=== PATIENT | female | born 1975 | race Caucasian/White ===

== ENCOUNTER 2018-06-25 00:32 | Outpatient (CLI) | payer OTHER, SELFPAY ==
--- NOTE | 2018-06-25 07:31 | MERGE_ITS ---
*[facility]* *[facility]* [address] [place] [address] Date of study: 06/25/2018 Transthoracic Echocardiography M-mode, complete 2D, complete spectral Doppler, and color Doppler *STUDY CONCLUSIONS* Summary: 1. Left ventricle: The cavity size was normal. Wall thickness was normal. Systolic function was normal. The estimated ejection fraction was 60-65%. Wall motion was normal; there were no regional wall motion abnormalities. Diastolic parameters were normal. 2. Right ventricle: The cavity size was normal. Wall thickness was normal. Systolic function was normal. 3. Inferior vena cava: The vessel was normal in size. The respirophasic diameter changes were in the normal range (greater than or equal to 50%), consistent with normal central venous pressure. *PATIENT PRESENTATION* Height: 165.1cm ((65in) ) S/D Pressure: 109 / 74 Weight: 88kg ((193.6lb) ) BSA: 1.95m^2 Test start time: 07:45 AM. Test stop time: 08:35 AM. ORDERING Lolly Houser REFERRING Lolly Houser PERFORMING Unknown PERFORMING 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 Pertinent images and digital data are archived for permanent storage and are available for subsequent review. No prior study was available for comparison. Study status: Routine. Transthoracic echocardiography. M-mode, complete 2D, complete spectral Doppler, and color Doppler. A Transthoracic Echocardiogram was performed. Scanning was performed from the parasternal, apical, subcostal, and suprasternal notch acoustic windows. Images were obtained using an [id number] cardiac ultrasound machine. Study completion: The patient tolerated the procedure well. There were no complications. History: PMH: Edema. *CARDIAC ANATOMY* Left ventricle: The cavity size was normal. Wall thickness was normal. Systolic function was normal. The estimated ejection fraction was 60-65%. Wall motion was normal; there were no regional wall motion abnormalities. Diastolic parameters were normal. Aortic valve: Trileaflet; normal thickness leaflets. Mobility was not restricted. Doppler: Transvalvular velocity was within the normal range. There was no stenosis. There was no significant regurgitation. VTI ratio of LVOT to aortic valve: 0.77. Valve area (VTI): 2.3cm^2. Indexed valve area (VTI): 1.2cm^2/m^2. Peak velocity ratio of LVOT to aortic valve: 0.74. Valve area (Vmax): 2.2cm^2. Indexed valve area (Vmax): 1.1cm^2/m^2. Mean velocity ratio of LVOT to aortic valve: 0.76. Valve area (Vmean): 2.3cm^2. Indexed valve area (Vmean): 1.2cm^2/m^2. Mean gradient (S): 4.6mm Hg. Peak gradient (S): 8.3mm Hg. Aorta: Aortic root: The aortic root was normal in size. Ascending aorta: The ascending aorta was normal in size. Mitral valve: Structurally normal valve. Mobility was not restricted. Doppler: Transvalvular velocity was within the normal range. There was no evidence for stenosis. There was trivial regurgitation. Valve area by pressure half-time: 4.3cm^2. Indexed valve area by pressure half-time: 2.2cm^2/m^2. Peak gradient (D): 3.1mm Hg. Left atrium: The atrium was normal in size. Right ventricle: The cavity size was normal. Wall thickness was normal. Systolic function was normal. Pulmonic valve: Structurally normal valve. Doppler: Transvalvular velocity was within the normal range. There was no evidence for stenosis. There was trivial regurgitation. Peak gradient (S): 3.7mm Hg. Tricuspid valve: Structurally normal valve. Doppler: Transvalvular velocity was within the normal range. There was no evidence for stenosis. There was mild regurgitation. Pulmonary artery: Pulmonary systolic pressure was within the normal range, in the range of 25mm Hg to 30mm Hg. Right atrium: The atrium was normal in size. Pericardium: There was no pericardial effusion. Systemic veins: Inferior vena cava: Well visualized. The vessel was normal in size. The respirophasic diameter changes were in the normal range (greater than or equal to 50%), consistent with normal central venous pressure. Baseline ECG: Sinus bradycardia. Measurements Left ventricle Value Reference LV ID, ED, PLAX 4.8 cm 3.5 - 6.0 LV ID, ES, PLAX 3.2 cm 2.1 - 4.0 LV PW thickness, ED, PLAX 0.9 cm LV end-diastolic volume, 1-p A2C 78 ml LV ejection fraction, 1-p A2C 61 % LV end-diastolic volume, 1-p A4C 63 ml LV ejection fraction, 1-p A4C 62 % LV e', lateral 0.125 m/sec LV E/e', lateral 7 LV e', medial 0.102 m/sec LV E/e', medial 9 LV e', average 0.114 m/sec LV E/e', average 8 Ventricular septum Value Reference IVS thickness, ED, PLAX 1.0 cm LVOT Value Reference LVOT ID, A-P 2.0 cm LVOT area 3 cm^2 LVOT peak velocity, S 1.06 m/sec LVOT mean velocity, S 0.79 m/sec LVOT VTI, S 24.8 cm LVOT peak gradient, S 4.5 mm Hg LVOT mean gradient, S 2.7 mm Hg Stroke volume (SV), LVOT DP 74 ml Stroke index (SV/bsa), LVOT DP 38 ml/m^2 Aortic valve Value Reference Aortic valve peak velocity, S 1.4 m/sec Aortic valve mean velocity, S 1.04 m/sec Aortic valve VTI, S 32.0 cm Aortic mean gradient, S 4.6 mm Hg Aortic peak gradient, S 8.3 mm Hg VTI ratio, LVOT/AV 0.77 Aortic valve area, VTI 2.3 cm^2 Velocity ratio, peak, LVOT/AV 0.74 Aortic valve area, peak velocity 2.2 cm^2 Velocity ratio, mean, LVOT/AV 0.76 Aortic valve area, mean velocity 2.3 cm^2 Aortic valve area/bsa, mean velocity 1.2 cm^2/m^2 Aorta Value Reference Aortic root ID, ED 2.6 cm Ascending aorta ID, A-P, S 3.2 cm RVOT Value Reference RVOT VTI, S 19.5 cm Left atrium Value Reference LA ID, A-P, ES 3.4 cm LA ID/bsa, A-P 1.7 cm/m^2 <=2.2 LA area, ES, A4C 14.2 cm^2 8.8 - 23.4 LA area, ES, A2C 15 cm^2 LA volume/bsa, ES, 1-p A4C 17 ml/m^2 LA volume, ES, 2-p 37 ml LA volume/bsa, ES, 2-p 19 ml/m^2 LA/aortic root ratio 1.3 Mitral valve Value Reference Mitral E-wave peak velocity 0.88 m/sec Mitral A-wave peak velocity 0.53 m/sec Mitral deceleration time 177 ms 150 - 230 Mitral pressure half-time 51 ms Mitral peak gradient, D 3.1 mm Hg Mitral E/A ratio, peak 1.67 Mitral valve area, PHT, DP 4.3 cm^2 Pulmonary veins Value Reference Pulmonary vein peak velocity, S 0.52 m/sec Pulmonary vein peak velocity, D 0.56 m/sec Pulmonary vein velocity ratio, peak, 0.94 S/D Pulmonary vein A-wave reversal peak 0.25 m/sec velocity Pulmonary vein A-wave reversal 174 ms duration Tricuspid valve Value Reference Tricuspid regurg peak velocity 2.5 m/sec Tricuspid peak RV-RA gradient 25.4 mm Hg Right atrium Value Reference RA area, ES, A4C 12.2 cm^2 8.3 - 19.5 Pulmonic valve Value Reference Pulmonic peak gradient, S 3.7 mm Hg Pulmonic regurg velocity, ED 0.96 m/sec Legend: (L) and (H) chacha values outside specified reference range. I have personally reviewed the images and have reviewed and edited the reported findings. Electronically signed by Escobar Paul 06/25/2018 11:44
== END 2018-06-25 00:52 ==
PROVIDERS: PCP Family Medicine; Visit Provider Family Medicine
DX: R60.0 Localized edema (principal)
CPT/HCPCS: 93306

== ENCOUNTER 2018-07-02 02:30 | Outpatient (CLI) | payer OTHER, SELFPAY ==
--- NOTE | 2018-08-05 17:13 | CER_ITS ---
DATE OF READING: August 05, [address]: July 02 - July 31, 2018 Baseline rhythm sinus. Average heart rate 68 bpm. No atrial fibrillation identified. 0 critical, 0 serious events. 43 stable events. Shortness of breath is described once during sinus tachycardia 124 bpm. Rapid/fast heart rate descri bed once during sinus rhythm with PVC 99 bpm. Lightheadedness/dizziness described twice during sinus rhythm 80-92 bpm. Chest pain or pressure described the remainder of times all during sinus rhythm 59-91 bpm.
--- NOTE | 2018-08-15 13:56 | W.ZIOMONITOR ---
ZIO Patch Weight Calculator Note: Findings: Monitored for 30 days. Sinus rhythm throughout. Average HR 79/', range 56 - 110/'. No tachy- or bradyarrhytmias 42 patient events, none correlated w/ arrhythmias. Interpretation: Normal study. S/s don't correlate w/ arrhythmias
--- NOTE | 2018-08-15 14:02 | ZIOP_ITS ---
ZIO Patch Reception Centre Manager Note: Findings: Monitored for 30 days. Sinus rhythm throughout. Average HR 79/', range 56 - 110/'. No tachy- or bradyarrhytmias 42 patient events, none correlated w/ arrhythmias. Interpretation: Normal study. S/s don't correlate w/ arrhythmias
--- NOTE | 2018-08-16 09:39 | W.CARDEVENT ---
Cardiac Event Recorder Cardiac Event Note: Preventive monitoring device Patient monitored for 30 days. Indication: palpitations Patient was in sinus rhythm throughout the monitoring period. No significant arrhythmias detected. 42 patient triggered events with symptoms such as chest pain, shortness of breath or flutter all correspond to sinus rhythm. No significant tachyarrhythmias or bradyarrhythmias detected.
== END 2018-07-02 02:50 ==
PROVIDERS: PCP Family Medicine; Visit Provider Family Medicine
DX: R00.2 Palpitations (principal); I49.3 Ventricular premature depolarization
CPT/HCPCS: 93270

== ENCOUNTER 2018-07-10 00:51 | Outpatient (CLI) | payer OTHER, SELFPAY ==
--- NOTE | 2018-07-10 09:00 | DI.MAMMO_ITS ---
SYMPTOMS/DIAGNOSIS: SCREENING MAMMOGRAMS: Mammograms were interpreted according to the usual protocol including computer analysis with CAD system, tomosynthesis and C view imaging. No priors. No masses or microcalcifications are seen. There is nothing to suggest malignancy. IMPRESSION: Negative mammogram. Routine screening is recommended. Category 1 , breast density C. MQSA ASSESSMENT OF FINDINGS: Negative. Category 1. Patient will receive a letter notifying them of these results. Bi-RADS category C. The breasts are heterogeneously dense, which may obscure small masses.
== END 2018-07-10 01:11 ==
PROVIDERS: PCP Family Medicine; Visit Provider Family Medicine
DX: Z12.31 Encounter for screening mammogram for malignant neoplasm of breast (principal)
CPT/HCPCS: 77063; 77067

== ENCOUNTER 2018-07-10 08:09 | Emergency (ER) | payer OTHER, SELFPAY ==
[2018-07-10 08:14] VITALS: BP 146/95; PULSE 77; RESP 16; TEMP 37.4; O2SAT 98
--- NOTE | 2018-07-10 08:34 | W.ED.GENAD ---
Discharge Plan Disposition Patient Disposition: HOME Condition: Stable Discharge Details Chief Complaint: Cellulitis Clinical Impression: Bacterial skin infection, Folliculitis Primary Care Provider: Lolly Houser V ED Provider: Edilma Donahue Home Meds and New Rx's Prescriptions: New mupirocin 2 % ointment 1 applic TP TID Qty: 15 RF: 0 Discharge Instructions Instructions: Folliculitis (ED) Additional Instructions: Alternate Tylenol and Motrin as needed and directed for pain. Apply warm compresses to the affected area several times daily for 20 minutes at a time. Use the antibiotic ointment as directed. Follow-up with the primary care doctor in 1 week for reevaluation. Return immediately to the emergency department if you develop any worsening or new concerning symptoms such as fever, red streaking, or any other concerns. Discharge Data Discharge Physician: Edilma Donahue Medical Decision Making 43-year-old female who presents with painful lump on the back of the right side of her head since yesterday morning. Patient states it is sore to the touch and feels like a bump. Patient states is worse with bending over. She has taken Tylenol, Motrin applied ice, and heat without relief. She states this morning it started radiating down into her right neck and up to her right ear. She denies any changes in size. She denies known fever. She states she has been eating and drinking normally. Right posterior head notes 2-3 pinpoint very yellowish erythematous papules on the right occipital region and scalp at the base of the hair follicle. There is no abscess, drainage or bleeding noted. Differential diagnosis includes bug bite, folliculitis. No enlarged lymph node. Doubt viral process such as herpes or shingles, as there is no other rash but with significant pain this could be possible. At this point in time I do not think oral antibiotics are indicated and patient is agreeable. Discussed with patient that as the area has not changed in size since yesterday, this is reassuring but it may change at any time. Patient instructed to alternate Tylenol and Motrin, alternate ice and heat, and will send home with mupirocin to apply to the affected area 2-3 times daily. It was discussed with patient that symptoms could change or worsen over the next few days and that she should return immediately with any concerns such as fever, red streaking, or any other concerns. She is instructed to follow-up with her primary care doctor in 1 week for reevaluation. HPI General Mode of arrival: ambulatory. Date/Time Provider Initiated Documentation: 07/10/18 08:14. Limitations to Documentation: no limitations. Information obtained by: patient. HPI Narrative: 43-year-old female who presents with painful lump on the back of the right side of her head since yesterday morning. Patient states it is sore to the touch and feels like a bump. Patient states is worse with bending over. She has taken Tylenol, Motrin applied ice, and heat without relief. She states this morning it started radiating down into her right neck and up to her right ear. She denies any changes in size. She denies known fever. She states she has been eating and drinking normally. Past medical history: None Surgical history: L5-S1 fusion, , tubal ligation Social history: Quit tobacco, rare alcohol, denies drugs Medications: Multivitamin Allergies: None PCP: Dr. Houser LMP: 3 weeks ago Related Data Home Medications Medication Instructions Recorded Confirmed mupirocin 1 applic TP TID #15 gm 07/10/18 Previous Rx's Medication Instructions Recorded mupirocin 1 applic TP TID #15 gm 07/10/18 Allergies Allergy/AdvReac Type Severity Reaction Status Date / Time No Known Allergies Allergy Unverified 07/10/18 08:18 General Stated Complaint: Cellulitis ELENA: 4 Review of Systems Review of Systems All systems reviewed & are unremarkable except as noted in HPI and below Constitutional Denies chills, Denies fatigue, Denies fever(s), Denies poor appetite and Denies weakness Eyes Denies blurry vision and Denies eye pain ENT Denies ear discharge, Reports otalgia and Reports neck pain Cardiovascular Denies chest pain and Denies dyspnea Respiratory Denies dyspnea Musculoskeletal Reports neck pain Neurologic Denies weakness Endocrine Denies fatigue [facility] Social History Smoking/Tobacco Use Status: Former Tobacco Use Exam Const General: cooperative and healthy appearing Orientation: alert and awake [facility] Head: other (3 pinpoint faint yellowish/pinkish papules noted in right posterior occipital region and scalp. No significant induration, fluctuance, edema or erythema. No lymphadenopathy. No red streaking) Ears: hearing grossly normal bilaterally, external ears normal and TM's normal bilaterally General nose exam: external nose normal Face and sinus: normal facial exam Mouth: oral mucosae normal Teeth and gingiva: dentition normal Throat: posterior oropharynx normal Eyes General: appearance normal, both eyes and all related structures Eyelids: eyelids normal Pupils: PERRL EOM: EOM intact bilaterally Neck Neck: normal visual inspection Lymphatic: no lymphadenopathy noted Chest Chest: normal inspection of the chest Resp Effort & Inspection: normal respiratory effort and able to speak in complete sentences Cardio Rate: regular rate Neuro General: alert and awake Cognition: normal cognition Speech: speech normal Gait: normal gait Extrem General: full ROM Psych Appearance: grossly normal Mental Status: mental status grossly normal Speech and Movement: speech and movement normal Affect: normal affect Thought Process: normal Course Vital Signs Temperature 99.3 F 07/10/18 08:14 Pulse 77 07/10/18 08:14 Respiratory Rate 16 07/10/18 08:14 Blood Pressure 146/95 H 07/10/18 08:14 Pulse Oximetry 98 07/10/18 08:14 Temperature 99.3 F 07/10/18 08:14 Temperature Source Temporal Artery Scan 07/10/18 08:14 Pulse 77 07/10/18 08:14 Respiratory Rate 16 07/10/18 08:14 Respiratory Effort 07/10/18 08:16 Blood Pressure 146/95 H 07/10/18 08:14 Blood Pressure Position Sitting 07/10/18 08:14 Pulse Oximetry 98 07/10/18 08:14 Oxygen Delivery Method Room Air 07/10/18 08:14 Oxygen Flow Rate 0 07/10/18 08:14 Pain Level 6 07/10/18 08:14
--- NOTE | 2018-07-10 08:38 | ED.GENADUL_ITS ---
Discharge Plan Disposition Patient Disposition: HOME Condition: Stable Discharge Details Chief Complaint: Cellulitis Clinical Impression: Bacterial skin infection, Folliculitis Primary Care Provider: Lolly Houser V ED Provider: Edilma Donahue Home Meds and New Rx's Prescriptions: New mupirocin 2 % ointment 1 applic TP TID Qty: 15 RF: 0 Discharge Instructions Instructions: Folliculitis (ED) Additional Instructions: Alternate Tylenol and Motrin as needed and directed for pain. Apply warm compresses to the affected area several times daily for 20 minutes at a time. Use the antibiotic ointment as directed. Follow-up with the primary care doctor in 1 week for reevaluation. Return immediately to the emergency department if you develop any worsening or new concerning symptoms such as fever, red streaking, or any other concerns. Discharge Data Discharge Physician: Edilma Donahue Medical Decision Making 43-year-old female who presents with painful lump on the back of the right side of her head since yesterday morning. Patient states it is sore to the touch and feels like a bump. Patient states is worse with bending over. She has taken Tylenol, Motrin applied ice, and heat without relief. She states this morning it started radiating down into her right neck and up to her right ear. She denies any changes in size. She denies known fever. She states she has been eating and drinking normally. Right posterior head notes 2-3 pinpoint very yellowish erythematous papules on the right occipital region and scalp at the base of the hair follicle. There is no abscess, drainage or bleeding noted. Differential diagnosis includes bug bite, folliculitis. No enlarged lymph node. Doubt viral process such as herpes or shingles, as there is no other rash but with significant pain this could be possible. At this point in time I do not think oral antibiotics are indicated and patient is agreeable. Discussed with patient that as the area has not changed in size since yesterday, this is reassuring but it may change at any time. Patient instructed to alternate Tylenol and Motrin, alternate ice and heat, and will send home with mupirocin to apply to the affected area 2-3 times daily. It was discussed with patient that symptoms could change or worsen over the next few days and that she should return immediately with any concerns such as fever, red streaking, or any other concerns. She is instructed to follow-up with her primary care doctor in 1 week for reevaluation. HPI General Mode of arrival: ambulatory . Date/Time Provider Initiated Documentation: 07/10/18 08:14 . Limitations to Documentation: no limitations . Information obtained by: patient . HPI Narrative: 43-year-old female who presents with painful lump on the back of the right side of her head since yesterday morning. Patient states it is sore to the touch and feels like a bump. Patient states is worse with bending over. She has taken Tylenol, Motrin applied ice, and heat without relief. She states this morning it started radiating down into her right neck and up to her right ear. She denies any changes in size. She denies known fever. She states she has been eating and drinking normally. Past medical history: None Surgical history: L5-S1 fusion, , tubal ligation Social history: Quit tobacco, rare alcohol, denies drugs Medications: Multivitamin Allergies: None PCP: Dr. Houser LMP: 3 weeks ago Related Data Home Medications Medication Instructions Recorded Confirmed mupirocin 1 applic TP TID #15 gm 07/10/18 Previous Rx's Medication Instructions Recorded mupirocin 1 applic TP TID #15 gm 07/10/18 Allergies Allergy/AdvReac Type Severity Reaction Status Date / Time No Known Allergies Allergy Unverified 07/10/18 08:18 General Stated Complaint: Cellulitis ELENA: 4 Review of Systems Review of Systems All systems reviewed & are unremarkable except as noted in HPI and below Constitutional Denies chills, Denies fatigue, Denies fever(s), Denies poor appetite and Denies weakness Eyes Denies blurry vision and Denies eye pain ENT Denies ear discharge, Reports otalgia and Reports neck pain Cardiovascular Denies chest pain and Denies dyspnea Respiratory Denies dyspnea Musculoskeletal Reports neck pain Neurologic Denies weakness Endocrine Denies fatigue [facility] Social History Smoking/Tobacco Use Status: Former Tobacco Use Exam Const General: cooperative and healthy appearing Orientation: alert and awake [facility] Head: other (3 pinpoint faint yellowish/pinkish papules noted in right posterior occipital region and scalp. No significant induration, fluctuance, edema or erythema. No lymphadenopathy. No red streaking) Ears: hearing grossly normal bilaterally, external ears normal and TM's normal bilaterally General nose exam: external nose normal Face and sinus: normal facial exam Mouth: oral mucosae normal Teeth and gingiva: dentition normal Throat: posterior oropharynx normal Eyes General: appearance normal, both eyes and all related structures Eyelids: eyelids normal Pupils: PERRL EOM: EOM intact bilaterally Neck Neck: normal visual inspection Lymphatic: no lymphadenopathy noted Chest Chest: normal inspection of the chest Resp Effort & Inspection: normal respiratory effort and able to speak in complete sentences Cardio Rate: regular rate Neuro General: alert and awake Cognition: normal cognition Speech: speech normal Gait: normal gait Extrem General: full ROM Psych Appearance: grossly normal Mental Status: mental status grossly normal Speech and Movement: speech and movement normal Affect: normal affect Thought Process: normal Course Vital Signs Temperature 99.3 F 07/10/18 08:14 Pulse 77 07/10/18 08:14 Respiratory Rate 16 07/10/18 08:14 Blood Pressure 146/95 H 07/10/18 08:14 Pulse Oximetry 98 07/10/18 08:14 Temperature 99.3 F 07/10/18 08:14 Temperature Source Temporal Artery Scan 07/10/18 08:14 Pulse 77 07/10/18 08:14 Respiratory Rate 16 07/10/18 08:14 Respiratory Effort 07/10/18 08:16 Blood Pressure 146/95 H 07/10/18 08:14 Blood Pressure Position Sitting 07/10/18 08:14 Pulse Oximetry 98 07/10/18 08:14 Oxygen Delivery Method Room Air 07/10/18 08:14 Oxygen Flow Rate 0 07/10/18 08:14 Pain Level 6 07/10/18 08:14
== END 2018-07-10 08:46 | disposition home or self-care (01) ==
PROVIDERS: Emergency Provider Physician Assistant; PCP Family Medicine
DX: L08.9 Local infection of the skin and subcutaneous tissue, unspecified (principal); L73.9 Follicular disorder, unspecified; R22.0 Localized swelling, mass and lump, head
CPT/HCPCS: 99283

== ENCOUNTER 2020-09-03 02:04 | Outpatient (CLI) | payer OTHER, SELFPAY ==
--- NOTE | 2020-09-03 | DI.US_ITS ---
EXAM: US PELVIS TRANSVAGINAL CLINICAL HISTORY: RT LOWER QUADRANT ABD PAIN R10.31 TECHNIQUE: Ultrasound performed using standard protocol. FINDINGS: Pelvic ultrasound was performed transabdominally and transvaginally. No free fluid identified in the pelvis. Possible nonobstructing left lower pole renal calculus ident ified on limited scanning, posterior acoustic shadowing and twinkle artifact noted. Uterus measures about 9.6 x 5.2 x 7.3 cm in diameter. The myometrium is heterogeneous. There is que stion of ??? venetian blind sign??? which can be associated with adenomyosis, additional evaluation with pelv ic MRI may be considered to exclude adenomyosis. No other focal abnormality of the uterus identified . Endometrium was about 8 millimeters in thickness and appears homogeneous. The ovaries are unremarkable in appearance, measuring 35 x 17 x 21 millimeters in diameter on the rig ht and 27 x 19 x 16 millimeters on the left with 19 millimeter presumed dominant right ovarian follic le. IMPRESSION: Heterogeneous uterus with question ???venetian blind sign??? raising the possibility of adenomyosis. Additional evaluation with pelvic MRI may be considered if clinically appropriate. Nonobstructing left renal calculus as described above. DATA REPOSITORY:
== END 2020-09-03 02:24 ==
PROVIDERS: PCP Family Medicine; Visit Provider Nurse Practitioner Women's Health
DX: N20.0 Calculus of kidney (principal); R10.31 Right lower quadrant pain
CPT/HCPCS: 76830; 76856

== ENCOUNTER 2020-10-26 01:40 | Outpatient (CLI) | payer OTHER, SELFPAY ==
--- NOTE | 2020-10-26 08:30 | DI.MAMMO_ITS ---
EXAM: MG MAMMO SCREENING CLINICAL HISTORY: SCREENING,Z12.31 TECHNIQUE: Bilateral full field digital CC and MLO mammographic images were obtained with 3D tomosyn thesis and utilizing computer aided detection (CAD). COMPARISON: Available for comparison. FINDINGS: Masses/Architectural Distortion: None seen. Microcalcifications: No suspicious pleomorphic-type are seen. Skin Thickening/Nipple Retraction: None. IMPRESSION: 1. No significant interval change with no specific features of malignancy noted. 2. Unless there is more urgent need, screening mammography is recommended, as per [employer] guidelines. BI-RADS Category 1 - Negative Breast Density - Category C - Heterogeneously dense Breast density category C or D implies that the patient has dense breast tissue. Dense breast tissue is very common and is not abnormal but dense breast tissue can make it harder to find cancer on a ma mmogram. Also, dense breast tissue may increase their breast cancer risk. This information about the result of the mammogram report was provided to the patient to raise their awareness. Use this report when you speak with the patient about their risks for breast cancer, which includes their family hist ory. At that time, you may recommend for more screening tests (Ultrasound or MRI) as they might be us eful based on their risk. A negative radiographic report should not delay biopsy if a dominant or clinically suspicious mass is present. Up to ten percent of cancers are not identified on mammography. A negative report may reinforce clinical impression. Adenosis and dense breasts may obscure an underlying neoplasm. False positive reports average 6 to 10%. Patient will receive a letter notifying them of these results.
== END 2020-10-26 02:00 ==
PROVIDERS: PCP Family Medicine; Visit Provider Nurse Practitioner Women's Health
DX: Z12.31 Encounter for screening mammogram for malignant neoplasm of breast (principal)
CPT/HCPCS: 77063; 77067

== ENCOUNTER 2021-05-03 02:02 | Outpatient (CLI) | payer OTHER, SELFPAY ==
--- NOTE | 2021-05-03 | DI.MRI_ITS ---
Exam(s) MR CERVICAL SPINE WO EXAM: MR CERVICAL SPINE WO CLINICAL HISTORY: LT NECK PAIN, M54.2 TECHNIQUE: Multiplanar multisequence MRI of the cervical spine was performed without intravenous con trast. COMPARISON: No exams were available for comparison FINDINGS: BONES: Vertebral body heights are maintained. Intervertebral disc spaces are normal. Alignment is nor mal. Bone marrow signal intensity is within normal limits. CERVICAL CORD: Craniovertebral junction is unremarkable. The cervical cord is normal size and signal intensity. SOFT TISSUES: Unremarkable. C2-3: No disc herniation or bulge is identified. No significant central spinal canal or neural forami nal stenosis. C3-4: No disc herniation or bulge is identified. No significant central spinal canal or neural forami nal stenosis C4-5: No disc herniation or bulge is identified. No significant central spinal canal or neural forami nal stenosis C5-6: There does appear to be a mild diffuse disc bulge at this level. No significant central spinal canal or neural foraminal stenosis C6-7: There is a large disc herniation eccentric to the left which extends into the left neural vanessa en causing moderate to severe left neural foraminal stenosis. No significant central spinal canal or right neural foraminal stenosis. C7-T1: No disc herniation or bulge is identified. No significant central spinal canal or neural vanessa inal stenosis IMPRESSION: 1. Large disc herniation at C6-C7 eccentric to the left and extending into the left neural foramen. It causes moderate to severe left neural foraminal stenosis. 2. Mild diffuse disc bulge at C5-C6. No significant central spinal canal or neural foraminal stenosi s results. DATA REPOSITORY:
== END 2021-05-03 02:22 ==
PROVIDERS: PCP Family Medicine; Visit Provider Family Medicine
DX: M50.223 Other cervical disc displacement at C6-C7 level (principal); M50.222 Other cervical disc displacement at C5-C6 level; M48.02 Spinal stenosis, cervical region; R20.2 Paresthesia of skin; M25.512 Pain in left shoulder
CPT/HCPCS: 72141

== ENCOUNTER 2021-12-13 01:07 | Outpatient (CLI) | payer OTHER, SELFPAY ==
--- NOTE | 2021-12-13 08:18 | DI.MAMMO_ITS ---
Exam(s) MAMMO SCREENING EXAM: MAMMO SCREENING CLINICAL HISTORY: SCREENING FOR BREAST CANCER Z12.31. TECHNIQUE: Bilateral full field digital CC and MLO mammographic images were obtained with 3D tomosyn thesis and utilizing computer aided detection (CAD). COMPARISON: Prior mammograms were reviewed, the most recent being October 2020. Prior limited right breast ultrasound of 08/02/2021 was also reviewed. FINDINGS: Fibroglandular tissue pattern is again noted be moderately dense, this somewhat decreasing the sensit ivity of the mammogram for finding hidden underlying lesions. There has been no significant change in the appearance and distribution of the fibroglandular tissue. There are no new obvious spiculated masses nor malignant appearing microcalcification groups. Numerous benign-appearing microcalcifications are again noted. There is no significant architectural distortion nor skin thickening-retraction. IMPRESSION: Moderately dense fibroglandular tissue. No obvious radiographic evidence of malignancy. Given the findings in the right breast on ultrasound of 08/02/2021 (1 o'clock position), if clinicall y indicated ultrasound examination of this finding can be repeated, particularly if the patient feels that it has not decreased in size or disappeared. BI-RADS Category 0 - Assessment Incomplete: Need additional imaging evaluation Breast Density - Category C - Heterogeneously dense Breast density Category C or D implies that the patient has dense breast tissue. Dense breast tissue can make it harder to find cancer on a mammogram. Dense breast tissue is also associated with an incr eased risk of breast cancer. This information about the result of the mammogram report was provided to the patient to raise their awareness. Use this report when you speak with the patient about their risks for breast cancer, which includes their family history. At that time, you may recommend additional screening tests (Ultrasoun d or MRI) as these tests may add significant information. A negative radiographic report should not delay biopsy if a dominant or clinically suspicious mass is present. Up to ten percent of cancers are not identified on mammography. A negative report may reinforce clinical impression. Adenosis and dense breasts may obscure an underlying neoplasm. False positive reports average 6 to 10%. Patient will receive a letter notifying them of these results.
== END 2021-12-13 01:27 ==
PROVIDERS: PCP Family Medicine; Visit Provider Nurse Practitioner Women's Health
DX: Z12.31 Encounter for screening mammogram for malignant neoplasm of breast (principal); R92.8 Other abnormal and inconclusive findings on diagnostic imaging of breast
CPT/HCPCS: 77063; 77067

== ENCOUNTER 2022-06-15 17:20 | Outpatient (REF) | payer OTHER, SELFPAY ==
[2022-06-15 19:33] LABS: HGB 11.4 g/dL (11.2-15.7); MCHC 30.8 % (32.0-36.0); MCV 81 fL (80-95); Platelet Count 439 10^3/uL (130-400); RBC 4.56 10^6/uL (3.93-5.22); RDW-SD 49.4 fL; WBC 10.37 10^3/uL (4.4-10.8)
[2022-06-15 19:50] LABS: ALT 28 U/L (14-59); AST 22 U/L (15-37); Albumin 3.8 g/dL (3.4-5.0); Alkaline Phosphatase 65 U/L (46-116); Anion Gap 9.1 mmol/L (3-11); BUN 11 mg/dL (7-18); Bilirubin, Total 0.4 mg/dL (0.2-1.0); CO2 26.9 mmol/L (21.0-32.0); CREATININE 0.6 mg/dL (0.55-1.02); Calculated LDL 121 mg/dL (<100); Chloride 102 mmol/L (98-107); Cholesterol 194 mg/dL (<200); Estimated GFR 112.73 (mL/min/1.73m2); Glucose 86 mg/dL (74-106); HDL Cholesterol 55 mg/dL (40-60); Sodium 138 mmol/L (136-145); TSH 1.29 uIU/mL (0.36-3.74); Total Protein 8.1 g/dL (6.4-8.2); Triglyceride 91 mg/dL (<150)
[2022-06-15 19:53] LABS: Hemoglobin A1C 5.8 % (<5.7)
== END 2022-06-15 17:21 | disposition home or self-care (01) ==
LOC: NCHCN 17:20
PROVIDERS: PCP Family Medicine; Visit Provider Nurse Practitioner Family
DX: R60.9 Edema, unspecified (principal); Z00.00 Encounter for general adult medical examination without abnormal findings
CPT/HCPCS: 80053; 80061; 85027; 83036; 84443

== ENCOUNTER 2022-07-21 09:01 | Day surgery (SDC) | payer OTHER, SELFPAY ==
--- NOTE | 2022-07-20 21:56 | W.PM.DSUDISC ---
Discharge Plan Disposition Patient Disposition: HOME Condition: Good Discharge Details Attending Provider: Sarah Wallace Primary Care Provider: Lolly Houser V Home Meds and New Rx's Prescriptions: No Action multivitamin [Daily Multi-Vitamin] Tablet 1 tab PO DAILY ibuprofen 200 mg capsule 600 mg PO Q6H PRN famotidine 20 mg tablet 20 mg PO PRN Discharge Instructions Additional Instructions: DSU Colonoscopy/EGD Post-Op Instructions Instructions for Everyone who is given Anesthesia: For your safety, please do the following for the next twenty-four (24) hours: *Do Not operate a motor vehicle (car, truck, motorcycle, etc.) *Do Not drink alcoholic beverages or use any recreational drugs for the first 24 hours or while taking pain medications. The medications in your body may have a reaction that can be dangerous. *Do Not make any important decisions or sign any important papers. Findings: Follow up: 1. No lifting over 20 pounds or strenuous activity for the first 24 hours after your procedure. After 24 hours there are no restrictions on your activity but you may feel fatigued for a few days. 2. After you arrive home you may have a light meal and return to your normal diet as you can tolerate it without feeling sick to your stomach. 3. You may have a bloated, gaseous feeling in your belly (abdomen) after a colonoscopy. Passing gas and belching will help. Walking or lying down on your left side with your knees flexed may relieve the discomfort. Call the office at [phone] (Office) or [phone] (Hospital) right away if you notice any of the following: a.Vomiting of blood or ?coffee ground stools?. b.Rectal bleeding 1Tbsp, blood clots or continuous bleeding. c.Severe belly (abdominal) pain. d.A hard distended belly (abdomen) and an inability to pass gas. 4. Please don?t expect to have a normal BM (bowel movement) for 2-3 days after your procedure. 5. If there are questions regarding the findings of your procedure, please contact your doctor 6. If you are unable to contact your doctor with a problem, contact the hospital at [phone]. 7. Continue all your regular medications unless directed otherwise. I understand the above instructions and have no questions. Signature of Patient or Adult Escort Name of Responsible Adult Escort Signature of Nurse Date/Time Activity:: see above Diet:: see above Discharge Orders Discharge Orders: Discharge Order (Routine); Ordered 07/20/22 Ordered By: Sarah Wallace
--- NOTE | 2022-07-20 21:56 | W.COLOREPORT ---
Colonoscopy Report Pre-op diagnosis general: CRC screening Surgeon: Sarah Wallace Anesthesia Type: General:No Airway Complications: None Disposition: same day Prep: Miralax/Dulcolax Procedure Description: After informed consent was obtained the patient was taken to the procedure room and placed in a left decubitous position. Monitors were applied and a time out was done. The patients name, date of , procedure, allergies to medications and metal in their body was reviewed. The patient was then sedated. Once sedated and comfortable a rectal exam was done. External exam was normal. Internal exam revealed a normal sphincter tone and no palpable masses. The prostate []. The scope was then introduced and retrofelexed. [] internal hemorrhoids were identified. The scope was then advanced to the cecum [] difficulty. The TI and appendiceal orifice were identified. The prep was []. The scope was then slowly retracted over [] minutes back into the rectum. Polyps were removed at []. The scope was removed and the patient was woken up and taken back to Same day surgery in stable condition. The patient tolerated the procedure well and there were no immediate complications. Follow up: The patient should follow up in [] years unless they develop changes in bowel habits or other new gastrointestinal complaints.
--- NOTE | 2022-07-20 21:57 | ENDO_ITS ---
Endoscopy Report PRE-OP DIAGNOSIS: dysphagia SURGEON: Sarah Wallace ANESTHESIA TYPE: General:No Airway PATHOLOGY: other COMPLICATIONS: None DISPOSITION: same day PROCEDURE DESCRIPTION: After informed consent was obtained the patient was take to the procedure room and placed in a supine position. Monitors were applied and a time out was done. The patients name, date of , procedure type, allergies to medications and metal in their body was reviewed. A bite block was placed and the patient was sedated. Once sedated and comfortable the gastroscope was advanced through the oropharynx which was grossly normal into the esophagus. The proximal and mid- esophagus were []. In the distal esophagus there was [] noted. The scope was advanced into the stomach and through the pylorus into the 3rd portion of the duodenum. The duodenum was noted to be []. Biopsies were done []. The scope was retracted back into the stomach and biopsies were done to rule out H. pylori. There were [] ulcers. The scope was retroflexed. The cardia and fundus were noted to be normal. There [] a hiatal hernia noted. The scope was retracted back into the esophagus and biopsies were done of the GE junction to rule out Barrios's. The Z line was regular. The GE junction was at [] cm. The scope was removed and the patient was woken up and taken back to [facility] in stable condition.
--- NOTE | 2022-07-21 06:32 | W.ANESPRE ---
General Info Date of Service Date Performed: 07/21/22 Height: 5 ft 4 in Weight: 87.203 kg Body Mass Index (BMI): 33.0 Surgical Procedure: Operation Date: 07/21/22 09:50 Proposed Procedure Side Surgeon p Colonoscopy/Gastroscopy Sarah Wallace, Meds Allergies and Home Medications Allergies Allergy/AdvReac Type Severity Reaction Status Date / Time omeprazole Allergy Unknown face felt Verified 07/20/22 08:32 like it was on fire Home Medication Medication Instructions Recorded ibuprofen 200 mg capsule 600 mg PO Q6H PRN 03/22/21 famotidine 20 mg tablet 20 mg PO PRN 07/03/22 multivitamin (Daily Multi-Vitamin 1 tab PO DAILY 07/03/22 tablet) Current Visit Medications: Current Medications Generic Name Dose Route Start Last Admin Trade Name Freq PRN Reason Stop Dose Admin Hyoscyamine Sulfate 0.125 mg 07/20/22 21:55 Hyoscyamine 0.125 Mg Sl/Oral/Chew SL DIRECTED PRN Ringer's Solution 1,000 mls @ 80 mls/hr 07/21/22 06:00 IV 07/21/22 23:59 [facility] IV Miscellaneous Supplies 1 each 07/21/22 06:00 Iv Access IV 07/21/22 23:59 DIRECTED ROSAMARIA Ondansetron HCl 4 mg 07/20/22 21:55 Ondansetron 4 Mg/2 Ml Vial IVP Q4H PRN PRN Nausea / Vomiting Sodium Chloride 0 ml 07/21/22 06:00 Normal Saline Flush 10 Ml Syr IV 07/21/22 23:59 PRN PRN Sodium Chloride 0 ml 07/21/22 06:00 Normal Saline 10 Ml Vial IJ 07/21/22 23:59 DIRECTED PRN Sterile Water 0 ml 07/21/22 06:00 Water,Injection,Sterile 10 Ml Vial IJ 07/21/22 23:59 DIRECTED PRN PFSH Active Problems Active Problems: Problem Status Onset Code Anxiety disorder F41.9 GERD (gastroesophageal reflux disease) K21.9 Family history of diabetes mellitus in first degree relative Z83.3 Edema R60.9 Menorrhagia N92.0 Insomnia G47.00 Chest congestion R09.89 Palpitations R00.2 Neck pain on left side M54.2 Swallowing problem R13.10 Medical History Medical History History of TMJ disorder Medical History Comments:: palpatations an chest congestion was worked up to be muscle related, and resolved after she went o a chiropractor. Tobacco Smoking/Tobacco Use Status: Current-Occasional Tobacco Type: cigarettes Alcohol Alcohol Intake: current Alcohol intake frequency: a few times a month Alcohol type: wine Substance Use Substance use: Never Substance use type: does not use Vital Signs and Lab Results Lab Results Blood Type / Crossmatch: No Data to Display Complete Blood Count: No Data to Display Complete Metabolic Panel: No Data to Display Liver Function Panel: No Data to Display Coagulation Panel: No Data to Display Cardiac Panel: No Data to Display Arterial Blood Gas: No Data to Display Venous Blood Gas: No Data to Display Pancreas Panel: No Data to Display Thyroid Panel: No Data to Display Infectious Disease: No Data to Display Blood Cultures: No Data to Display Toxicology Panel: No Data to Display Panel: No Data to Display Imaging and Studies Imaging and Studies Study information below may be from another EMR and interpreted by another provider. Please see original notes in EMR for more complete details. Echocardiogram Summary: 06/2018: LVEF 60-65%, Anesthesia Assessment and Plan Anesthesia History Personal History: No History of Anesthesia Complications Family History: No Family History of Anesthesia Complications Exercise Tolerance Exercise Tolerance: Metabolic Equivalents>4 Cardiac & Pulmonary Exam Cardiac Exam: Normal S1/S2 Heart Sounds Pulmonary Exam: Clear Bilateral Breath Sounds Implantable Cardiac Device Does patient have a Pacemaker or an ICD?: No Airway Exam Known Difficult Airway: No Mallampati Class: 2 Mouth Opening: Normal (> 3cm) Thyromental Distance: Greater than 3 cm Neck Range of Motion: Full ROM Neck Circumference: Normal Teeth Condition: Normal Dentition ASA Classification ASA Score: ASA 2 Emergency Case?: No NPO Status NPO Status: NPO Clears >2 hours, Solids >8 hours Status Status: Negative HCG Anesthesia Plan Resuscitation Status: Full Code Anesthesia Technique: General Anesthesia Airway Planned: Natural Airway Monitors Used: Standard Monitors Preoperative Comments:: 47 yo female with dysphagia/gerd for EGD and screening colo. Sig PMHx: GERD, anxiety, palpitations, TMJ, occ cigarettes, occ EtOH, A1c 5.8%, neck pain/bulging disks causes numb hands bilaterally occ while sleeping.
[2022-07-21 09:29] VITALS: BP 125/89; PULSE 74; RESP 18; TEMP 36.5; O2SAT 79
--- NOTE | 2022-07-21 09:45 | PDOC.DSDIS_ITS ---
Discharge Plan Disposition Patient Disposition: HOME Condition: Good Discharge Details Reason For Visit: EGD and colonoscopy Attending Provider: Cristi Tatum Primary Care Provider: Lolly Houser V Home Meds and New Rx's Prescriptions: Continued multivitamin [Daily Multi-Vitamin] Tablet 1 tab PO DAILY ibuprofen 200 mg capsule 600 mg PO Q6H PRN famotidine 20 mg tablet 20 mg PO PRN Discharge Instructions Instructions: Gastric Polyps (GEN), Colorectal Polyps (GEN) Additional Instructions: 1. If tolerated, consume a soft, low fiber diet for 1-2 days. 2. Do not drive, drink alcohol, operate machinery, make critical decisions, or do activities that require coordination or balance for 24 hours. 3. Because air was put into your colon during the procedure, expelling air from your rectum (passing gas or farting) is normal. 4. You may not have a bowel movement for 1-3 days because of the colonoscopy prep. This is normal. 5. You may experience a sore throat for 24 to 48 hours. You may use throat lozenges or gargle with warm salt water to relieve the discomfort. 6. Because air was put into your stomach during the procedure, you may experience some belching. 7. Go directly to the emergency room if you notice any of the following: Develop chills (warm to touch), or if you have a thermometer and your tempe rature is above 101 Difficulty breathing or difficultly swallowing Persistent vomiting Severe abdominal pain, other than gas cramps Severe chest pain Black, tarry stools Any bleeding ? exceeding one tablespoon 8. Call your physician if the site where your intravenous was started becomes red, swollen, painful, and warm to touch. 9. Your physician has reviewed your pre-procedure medications. Please continue to take those medications as previously ordered. You will be given specific information/education regarding any changes to your medications before leaving. Activity:: Activity as Tolerated Diet:: As Tolerated Discharge Orders Discharge Orders: Discharge Order (Routine); Ordered 07/20/22 Ordered By: Sarah Wallace DS: Diagnosis Discharge Diagnosis (1) Gastric polyps: Status: Acute Asessment and Plan: Continue taking famotidine My office will contact you with results of the biopsies (2) Colorectal polyp detected on colonoscopy: Status: Acute Asessment and Plan: My office will contact you with results of biopsies
--- NOTE | 2022-07-21 09:46 | W.COLOREPORT ---
Colonoscopy Report Date of procedure: 07/21/22 Pre-op diagnosis general: Gastroesophageal reflux disease, screening colonoscopy Post-op diagnosis procedure note: other (Gastric polyps, colorectal polyps) Procedure: EGD and colonoscopy Surgeon: Cristi Tatum Anesthesia Type: General:No Airway Estimated blood loss (mL): 20 Pathology: other (Gastric polyp, colon polyp at 35 cm) Complications: None Disposition: same day Prep: Miralax/Dulcolax Procedure Start Time: 10:19 Procedure End Time: 10:44 Retraction Time: 14 Procedure Description: After the initiation of monitored anesthetic care, and with the assistance of a bite block, I advanced a standard gastroscope through the mouth past the hypopharynx and into the esophagus.? Under the direct vision of the scope, I advanced down the esophagus into the stomach.? Once I entered the stomach, I performed a brief inspection, followed by retroflexion towards the gastric cardia.? This appeared normal.? After that, I gently advanced the scope around the incisura angularis and examined the pylorus.? There were multiple gastric polyps from the gastric body into the gastric antrum. The pylorus appeared normal.? Next, I advanced the scope through the pylorus into the duodenum.? The mucosa was pink and healthy appearing.? There were no abnormalities.? I was able to visualize bile draining into the duodenum through the ampulla Vater. ?Next, I began retracting the endoscope.? Again, I returned to the stomach which was carefully examined once again.? There was one dominant polyp. I performed a polypectomy. I used cold forceps, and there was minimal bleeding. I then gently desufflated some of the stomach, and withdrew the endoscope into the distal esophagus. The GE junction was normal-appearing. The Z-line was normal at 37 cm. ?Finally, I withdrew the scope along the length of the esophagus taking great care to examine the entirety of the mucosa.? I did not appreciate any abnormalities. After the induction of monitored anesthetic care, and with the patient in left lateral decubitus position, I began by performing an external anorectal exam.? Perineum and skin were normal, as was the anal verge.? There was no evidence of external hemorrhoids.? Next, I performed a digital rectal exam.? I did not appreciate any abnormal findings.? Next, I advanced a colonoscope into the rectal vault.? I performed retroflexion.? I did not see signs of pathologic internal hemorrhoids.? Using insufflation, I then advanced the colonoscope beyond the rectal folds and into the sigmoid colon before advancing towards the cecum.? The quality of the prep was adequate.? The scope was noted to be in the cecum by identification of the ileocecal valve and appendiceal orifice.? I then began withdrawing the colonoscope using repeated irrigation as necessary for full evaluation of the colonic mucosa. ?Once the scope was withdrawn to the level of the rectum, great care was taken to examine portions of the rectal folds.?Around 35 cm from the anal verge I identified a 0.75 cm polyp. ?It appeared sessile in character. ?I was able to remove this with a cold forceps. ?I examined the site, and there was minimal bleeding. ?Once this was completed, I continued to withdraw the scope and examine the remainder of the colonic mucosa. Finally, the scope was withdrawn and the patient was brought to the same-day surgery recovery unit as the anesthetic wore off. ?The findings and instructions were shared with the patient prior to discharge.
[2022-07-21 10:03] VITALS: BMI 33.0
--- NOTE | 2022-07-21 10:25 | STOM_PTH ---
PATIENT: Sandy Sy LOC: [facility] U#:[id number] AGE/SX: 47/F ROOM: RE07/21/[address]: Cristi Tatum MD : [id number] BED: DIS: 07/21/2022 SPEC #: [id number] RECD: 07/21/22 12:39 STATUS: KAY REQ #: [id number] EZRA: 07/21/22 10:[address]: Cristi Tatum DEPT: Surgical Specimen RECD BY: Bryanna Randle ENTERED: 07/21/22 12:40 SP TYPE: STOMACH OTHR DR: Lolly Houser V Tissues: 1 - STOMACH BIOPSY 2 - BIOPSY BOWEL Procedures: GROSS AND MICRO LEVEL 4 Comments: [id number]
[2022-07-21 10:51] VITALS: BP 108/73; PULSE 81; RESP 18; TEMP 36; O2SAT 100
--- NOTE | 2022-07-21 10:58 | W.ANESPOSTOP ---
Postoperative Evaluation Date, Time and Location Date Performed: 07/21/22 Time Performed: 10:58 Patient Location: Day Surgery Unit Vital Signs Most Recent Imported Vital Signs: Most Recent Vital Signs Temp Pulse Resp BP Pulse Ox 36.0 C L 81 18 108/73 100 07/21/22 10:51 07/21/22 10:51 07/21/22 10:51 07/21/22 10:51 07/21/22 10:51 Pain Score Most Recent Pain Score: Most Recent Pain Score Pain Level 1 07/21/22 10:51 Assessment Mental Status: Awake (Alert & Oriented to Patient Baseline) Airway and Respiratory Function: Patent airway with normal (patient baseline) respiratory exam Cardiovascular Function: Hemodynamically Stable Hydration Status: Adequately Hydrated Nausea & Vomiting: No Nausea or Vomiting Pain: Pt. Denies Any Pain Peripheral Nerve Block: Patient did not receive a nerve block
[2022-07-21 11:21] VITALS: BP 115/90; PULSE 78; RESP 18; TEMP 36; O2SAT 100
== END 2022-07-21 11:30 | disposition home or self-care (01) ==
PROVIDERS: PCP Family Medicine; Visit Provider Surgery
PROC: (CPT 45380; principal; 2022-07-21 09:45)
DX: K21.9 Gastro-esophageal reflux disease without esophagitis (principal); Z12.11 Encounter for screening for malignant neoplasm of colon; K31.7 Polyp of stomach and duodenum; K63.5 Polyp of colon
CPT/HCPCS: 45380; 43239; 88305

== ENCOUNTER 2022-08-11 00:31 | Outpatient (CLI) | payer OTHER, SELFPAY ==
--- NOTE | 2022-08-11 | DI.RAD_ITS ---
Exam(s) RF BARIUM SWALLOW EXAM: RF BARIUM SWALLOW CLINICAL HISTORY: SWALLOWING PROBLEM, R13.10 TECHNIQUE: 2D and realtime digital imaging was performed. CONTRAST MATERIAL: Oral barium Oral water soluble contrast was administered. COMPARISON: CR CHEST 2 VIEWS PA,LAT from 04/12/2018 FINDINGS: ESOPHAGRAM: Performed both standing and MARTINEZ recumbent. The esophagus is patent with no evidence for erosions, fold thickening, strictures, or masses. A hyp ertense upper esophageal sphincter was noted. No evidence of Zenker's diverticulum. With regards to the motility, there is a normal primary stripping wave. No tertiary contractions were noted. There i s no hiatal hernia or gastroesophageal reflux. The GE junction appears unremarkable. Other: Incidentally noted were multiple lucencies in stomach which may be polyps. IMPRESSION: There is a hypertense upper esophageal sphincter noted. No other findings in the esophagus and GE ju nction. Incidentally noted are multiple hypodensities in the stomach which may be polyps. Direct visualizati on-endoscopy is recommended. RADIATION DOSE DELIVERED: russ Larios=45.2 mGy
--- OUTSIDE RECORDS SUMMARY | 2022-08-11 00:33 | XMS_ITS | Encounter Summary ---
:1975 Author Organization [facility] Address [address] [place] [address] Care Team Providers Name Role Phone Unavailable Primary Care Provider Unavailable Encounter Details Date Type Department Care Team Description 10/29/2006 Results Only [facility] - Todd Boateng MD [address] [id number] [phone] Social History Tobacco Use Types Packs/Day Years Used Date Never Assessed Sex Assigned at Date Recorded Not on file documented as of this encounter Plan of Treatment Not on filedocumented as of this encounter Procedures Procedure Name Priority Date/Time Associated Comments Diagnosis HPV DETECTION, HIGH Routine 10/29/2006 15:07 Resu lts for this RISK TYPES EST procedure are i n the results section. CYTOPATHOLOGY Routine 10/29/2006 0:00 Results for this EST procedure are i n the results section. documented in this encounter Results HUMAN PAPILLOMA VIRUS DNA TEST (10/29/2006 15:07 EST) Specimen Description Cervix, ThinPrep [facility] vial LAB Result Positive for one or more of HPV types 16,18,31,33,35,39,45,51,52,56,58,59, or 68. These GUILLEN Amparo MCCARTNEYEN high/intermediate risk HPV t ypes are associated with dysplasia and some cervical cancers. LAB Report Status Final [facility] [id number] LAB Specimen Performing Organization Address City/State/ZIP Code Phon e Number [facility] [address] [place] [address] SERVICES [facility] [address] [place] [address] CYTOPATHOLOGY (10/29/2006 0:00 EST) Pathology Report: CYTOPATHOLOGY REPORT MINDY SALGUERO Reports generated via electronic interface contain coby ginal data; however they are lacking the format of the original re port. Caution should be taken when reading/interpreting unfo rmatted reports. Name: ? SHIVACAMACHO ? Accession #: ? [id number] : ? 1975 (Age: 31) ??F ?Collect Date: ? 10/09 Location: ? [facility] ? Receive Date : ? 10/30/2006 Provider: ?HILDA BOATENG MD Copy to: ?CRYSTAL PERDOMO MD ? Specimen/Source: ? ThinPrep Pap Test, Cervix/Endocervix, processed on Genero ThinPrep Imaging System, with manual evaluation Last Menstrual Period: ? 10/11/06 Other: ? HPVA - HPV testing requested if ASC-US on the current ThinPrep Pap test. ? SPECIMEN ADEQUACY ? Satisfactory for Evaluation - transformation zone component present GENERAL CATEGORIZATION ? Epithelial Cell Abnormality INTERPRETATION ? Squamous Cell Abnormality - Atypical squamous c ells, undetermined significance (ASC-US). EDUCATIONAL NOTES/RECOMMENDATIONS ? [facility] recommends alberta santo the 2001 Consensus Guidelines for the Management of Women with Cervical Cytological Abnormalities (JAM A,2002;287:2120-9). Management algorithms have b een distributed by [facility] and are available online at www.ASCCP.org. ? Document reviewed and electronically signed by: ? [facility] ? Report Date: ??11/02/2006 15:47 End of Report Specimen Performing Organization Address City/State/ZIP Code Phon e Number [facility] [address] [place] [address] SERVICES [facility] [address] [place] [address] documented in this encounter Visit Diagnoses Not on filedocumented in this encounter
--- OUTSIDE RECORDS SUMMARY | 2022-08-11 00:33 | XMS_ITS | Encounter Summary ---
:1975 Author Organization [facility] Address [address] [place] [address] Care Team Providers Name Role Phone Lolly Houser MD Primary Care Provider Encounter Details Date Type Department Care Team Description 07/21/2022 Lab Requisition [facility] Cristi Tatum Enc ounter for other Pathology & MD general examination Laboratory Medicine - [address] [place] [address] [address] [facility] [address] [place], [place] [address] Social History Tobacco Use Types Packs/Day Years Used Date Never Assessed Sex Assigned at Date Recorded Not on file documented as of this encounter Plan of Treatment Not on filedocumented as of this encounter Procedures Procedure Name Priority Date/Time Associated Diagnosis Comme nts SURGICAL PATHOLOGY Today 07/21/2022 10:25 Encounter for othe r Results for this EDT general examination procedur e are in the results section. documented in this encounter Results SURGICAL PATHOLOGY (07/21/2022 10:25 EDT) Note to Patient The following [facility] MEDICAL pathology results CENTER have been interpreted LABORATORY by your pathologist SERVICES and may be available to you before your health provider has had the opportunity to review them. Please allow time for your provider to receive these results and explore management options, if applicable. Final Diagnosis A. STOMACH, POLYP, BIOPSY: [facility] MEDICAL - Fragments of fundic gland polyp. CENTER LABORATORY B. COLON, AT 35 CM, POLYP, BIOPSY: SERVIC ES - Tubular adenoma. Attestation By the signature [facility] MEDICAL Electronica lly below, the attending CENTER signed by Laura physician certifies LABORATORY MD Ava on that they have 1) SERVICES 07/25/2022 at 1454 personally conducted a gross and/or microscopic examination of the described specimen(s), and/or personally interpreted the results of laboratory testing of the described specimen(s), and 2) personally rendered or confirmed the above diagnosis. Clinical History GERD/family hx of [facility] inflammatory bowel CENTER disease, gastric LABORATORY polyp, colon polyp SERVICES Gross Description A. [facility] MEDICAL Received in formalin huber d with proper patient identification (initials C, K) and gastric polyp x1 are 3 keating tissues (0.6 x 0.1 x 0.1 cm to 0.2 x 0.1 x 0.1 cm). Entirely submitted in A1. CENTER LABORATORY B. SERVICES Received in formalin huber d with proper patient identification (initials C,) and colon polyp x1 @ 35 cm is a single keating tissue fragment (0.3 x 0.2 x 0.1 cm). Submitted intact in B1. JAI HOFFMAN 07/24/2022 5:48 Performing Lab [facility] LAB [facility] LABORATORY SERVICES Scanned Images [facility] LABORATORY SERVICES Specimen Tissue - Entire colon (body structure) Tissue specimen (specimen) - Entire colo n (body structure) Performing Organization Address City/State/ZIP Code Phon e Number [facility] [address] [place] [address] SERVICES documented in this encounter Visit Diagnoses Diagnosis Encounter for other general examination documented in this encounter Care Teams Cigarette Inspector Relationship Specialty Start Date End Date Lolly Houser MD PCP - General 12/20/11 [address] [place] [address] documented as of this encounter
--- OUTSIDE RECORDS SUMMARY | 2022-08-11 00:33 | XMS_ITS | Encounter Summary ---
:1975 Author Organization [facility] Address [address] [place] [address] Care Team Providers Name Role Phone Unavailable Primary Care Provider Unavailable Encounter Details Date Type Department Care Team Description 02/13/2007 Results Only [facility] - Todd Boateng MD Maple conversion [address] [facility] [address] [place], [place] [id number] [place] [id number] [phone] Social History Tobacco Use Types Packs/Day Years Used Date Never Assessed Sex Assigned at Date Recorded Not on file documented as of this encounter Plan of Treatment Not on filedocumented as of this encounter Procedures Procedure Name Priority Date/Time Associated Diagnosis Comme nts SURGICAL PATHOLOGY Routine 02/13/2007 0:00 EDT Re sults for this procedure are i n the results section. documented in this encounter Results SURGICAL PATHOLOGY (02/13/2007 0:00 EDT) Pathology Report: SURGICAL PATHOLOGY REPORT MINDY RAZA Reports generated via electronic interface contain coby ginal data; LAB however they are lacking the format of the original re port. Caution should be taken when reading/interpreting unfo rmatted reports. Name: ? CAMACHO SHANNON ? Accession #: ? [id number] ? : ? 1975 (Age: 31) ??F ? Collect Date: ? 02/13/2007 ? Location: ? [facility] ? Receive Date: ? 02/15/20 07 ? Provider: HILDA BOATENG MD Copy to: CRYSTAL PERDOMO MD ? Final Pathologic Diagnosis: ? Endocervix, curettage: 1. ?Scant fragments of benign endocervica l tissue. 2. ? No dysplasia identified. Document reviewed and electronically signed by: LORIN MARC MD Report ??Date: 02/18/2007 21:38 By the signature above, the attending physician certif ies that he/she has personally conducted a gross and/or microscopic examin ation of the described specimens and rendered or confirmed the above diagnosi s. Specimen(s) Received: ? ECC Clinical History: ? History of ASCUS PAP, +HR - HPV, - colpo but SCJ up in cervix so I did an ECC Gross Description: ? Received in formalin labelled Shannon and ECC are 0.5 cc of red-brown mucinous material. ??The specimen is ent irely submitted in one cassette. ??(Guillermo Madrigal)/[facility] End of Report Specimen Performing Organization Address City/State/ZIP Code Phon e Number [facility] [address] [place] [address] SERVICES [facility] [address] [place] [address] documented in this encounter Visit Diagnoses Not on filedocumented in this encounter
--- OUTSIDE RECORDS SUMMARY | 2022-08-11 00:33 | XMS_ITS | Clinical Summary ---
:1975 Author Organization [facility] Address [address] [place] [address] Care Team Providers Name Role Phone Lolly Houser MD Primary Care Provider Encounters Date Type Specialty Care Team Description 07/21/2022 Lab Requisition Clinical Laboratory Cristi Tatum, En counter for other MD general examina tion from Last 3 Months Social History Tobacco Use Types Packs/Day Years Used Date Never Assessed Sex Assigned at Date Recorded Not on file Plan of Treatment Health Maintenance Due Date Last Done Comments Hepatitis C Screen 1975 COVID-19 Vaccine (#1) 1975 Procedures Procedure Name Priority Date/Time Associated Diagnosis Comme nts SURGICAL PATHOLOGY Today 07/21/2022 10:25 Encounter for othe r Results for this EDT general examination procedur e are in the results section. from Last 3 Months Results SURGICAL PATHOLOGY (07/21/2022 10:25 EDT) Note to Patient The following [facility] MEDICAL pathology results CENTER have been interpreted LABORATORY by your pathologist SERVICES and may be available to you before your health provider has had the opportunity to review them. Please allow time for your provider to receive these results and explore management options, if applicable. Final Diagnosis A. STOMACH, POLYP, BIOPSY: [facility] MEDICAL - Fragments of fundic gland polyp. CENTER LABORATORY B. COLON, AT 35 CM, POLYP, BIOPSY: SERVIC ES - Tubular adenoma. Attestation By the signature [facility] MEDICAL Electronica lly below, the attending CENTER signed by physician Laura certifies LABORATORY MD Ava on that they have 1) SERVICES 07/25/2022 at 1454 personally conducted a gross and/or microscopic examination of the described specimen(s), and/or personally interpreted the results of laboratory testing of the described specimen(s), and 2) personally rendered or confirmed the above diagnosis. Clinical History GERD/family hx of [facility] inflammatory bowel CENTER disease, gastric LABORATORY polyp, colon polyp SERVICES Gross Description A. [facility] MEDICAL Received in formalin huber d with [...] B1. JAI HOFFMAN 07/24/2022 5:48 Performing Lab [facility] HOSPITAL LAB [facility] LABORATORY SERVICES Scanned Images [facility] LABORATORY SERVICES Specimen Tissue - Entire colon (body structure) Tissue specimen (specimen) - Entire colo n (body structure) Performing Organization Address City/State/ZIP Code Phon e Number [facility] [address] [place] [address] SERVICES from Last 3 Months Insurance Payer Benefit Plan / Subscriber ID Effective Dates Phone Addre ss Type Group [employer] [place] [employer] [id number] 2021-Present [address] [place] [address] KerrieSandy Personal/Family Self 1975 [address] (Home) [place] [phone] [place] [place]) [place] [address] Sandy Sy Personal/Family Self 1975 [address] (Home) [place] Cevallos [phone] [place] [place] [address] Sandy Sy Personal/Family Self 1975 [address] (Home) [facility] [phone] [place] [address] Sandy Sy Personal/Family Self 1975 [address] (Home) [facility] [phone] [place]) [place] [address] Sandy Sy Personal/Family Self 1975 [address] (Home) [facility] [phone] [place] [address] Sandy Sy Personal/Family Self 1975 [address] (Home) [facility] [phone] [place] [address] Sandy Sy Personal/Family Self 1975 [address] (Home) [facility] [phone] [place]) [place] [address] Care Teams Physician Industrial Relationship Specialty Start Date End Date Lolly Houser MD PCP - General 12/20/[address] [place] [id number]
--- OUTSIDE RECORDS SUMMARY | 2022-08-11 00:33 | XMS_ITS | Encounter Summary ---
:1975 Author Organization [facility] Address [address] [place] [address] Care Team Providers Name Role Phone Lolly Houser MD Primary Care Provider Encounter Details Date Type Department Care Team Description 12/18/2011 Results Only [facility] Whitney Boateng MD Laboratory Services - [address] [place] [address] [place], [place] [id number] [phone] Social History Tobacco Use Types Packs/Day Years Used Date Never Assessed Sex Assigned at Date Recorded Not on file documented as of this encounter Plan of Treatment Not on filedocumented as of this encounter Procedures Procedure Name Priority Date/Time Associated Diagnosis Comme nts PAP TEST- RESULT Routine 12/18/2011 0:00 EDT Resu lts for this ONLY procedure are i n the results section. documented in this encounter Results PAP TEST- RESULT ONLY (12/18/2011 0:00 EDT) Pathology Report: CYTOPATHOLOGY REPORT [facility] Reports generated via electronic interface contain coby ginal data; however they are lacking the format of the original re port. Caution should be taken when reading/interpreting unfo rmatted reports. Name: ? CAMACHO ALTAMIRANO ? Accession #: ? [id number] : ? 1975 (Age: 36) ??F ?Collect Date: ? 12/06 Location: ? [facility] ? Receive Date : ? 12/20/2011 Provider: ?HILDA BOATENG MD Copy to: ? Specimen/Source: ? Pap Test, Cervix/Endocervix, ThinPrep Imaging System with manual evaluation Last Menstrual Period: ? SPECIMEN ADEQUACY ? Satisfactory for Evaluation - transformation zone component present GENERAL CATEGORIZATION ? Negative for Intraepithelial Lesion or Malignan cy ? Document reviewed and electronically signed by: ? SHY Coronado(ASCP) ? Report Date: ??12/22/2011 13:49 End of Report Specimen Performing Organization Address City/State/ZIP Code Phon e Number [facility] [address] [place] [address] SERVICES [facility] [address] [place] [address] documented in this encounter Visit Diagnoses Not on filedocumented in this encounter Care Teams Mannequin Sander And Finisher Relationship Specialty Start Date End Date Lolly Houser MD PCP - General 12/20/11 [address] [place] [address] documented as of this encounter
--- OUTSIDE RECORDS SUMMARY | 2022-08-11 00:33 | XMS_ITS | Encounter Summary ---
:1975 Author Organization [facility] Address [address] [place] [address] Care Team Providers Name Role Phone Unavailable Primary Care Provider Unavailable Reason for Visit Reason Onset Date Comments Pharyngitis 03/21/2010 Encounter Details Date Type Department Care Team Description 03/21/2010 Telephone [facility] Adult Ish Walker MD Pharyngitis Primary Care - [address] [address] [place] [address] [phone] Social History Tobacco Use Types Packs/Day Years Used Date Never Assessed Sex Assigned at Date Recorded Not on file documented as of this encounter Miscellaneous Notes Telephone Encounter - Nannette Gardner RN - 03/21/2010 0855 EDT Spoke with pt. 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 Her symptom is severe sore throat x 2 days. Doesn't have cold perse but has episodes where her nose suddenly starts running. Started gargling yesterday with salt andwater which hasn't helped and using chloraseptic lozenges. Do you want to order strep culture or otherwise? Telephone Encounter - Rayne Stauffer - 03/21/2010 0840 EDT Sore throat x 48 hrs, exposure to strep throat last week, please advise owen documented in this encounter Plan of Treatment Not on filedocumented as of this encounter Visit Diagnoses Not on filedocumented in this encounter
[2022-08-11] MEDS: Barium Sulfate 60% W/V 355 ML BTL PO (10:38)
== END 2022-08-11 00:51 ==
LOC: DI 00:31
PROVIDERS: PCP Family Medicine; Visit Provider Family Medicine
DX: R13.10 Dysphagia, unspecified (principal)
CPT/HCPCS: 74221

== ENCOUNTER 2023-10-18 13:06 | Outpatient (REF) | payer OTHER, SELFPAY ==
[2023-10-18 16:28] LABS: HCT 38.2 % (36.0-46.0); HGB 12.2 g/dL (11.2-15.7); MCH 27.5 pg (27.0-33.0); MCHC 31.9 % (32.0-36.0); MCV 86 fL (80-95); MPV 11.2 fL (8.0-11.0); Platelet Count 408 10^3/uL (130-400); RBC 4.44 10^6/uL (3.93-5.22); RDW 16.3 % (11.7-14.6); RDW-SD 51.9 fL; WBC 7.78 10^3/uL (4.4-10.8)
[2023-10-18 16:31] LABS: ESR 30 mm/hr (0-20)
[2023-10-18 17:15] LABS: C-Reactive Protein 0.52 mg/dL (0.0-0.3); TSH (W/Ref FT4) 1.29 uIU/mL (0.36-3.74)
[2023-10-18 17:22] LABS: Vitamin D 25 Total 29.1 ng/mL (30-100)
== END 2023-10-18 13:07 | disposition home or self-care (01) ==
LOC: NCHCN 13:06
PROVIDERS: PCP Family Medicine; Visit Provider Nurse Practitioner Family
DX: M25.59 Pain in other specified joint (principal)
CPT/HCPCS: 82306; 85027; 85652; 84443; 86140

== ENCOUNTER 2023-11-08 09:58 | Outpatient (REF) | payer OTHER, SELFPAY ==
[2023-11-09 12:15] LABS: Lyme Ab w Rflx to Lyme Confirm Equivocal (Negative)
[2023-11-09 15:50] LABS: Lyme IgG Ab Negative (Negative); Lyme IgM Ab Negative (Negative)
[2023-11-10 14:57] LABS: Anaplasma phagocytophilum Negative (Negative); B. miyamotoi PCR Negative (Negative); Babesia divergens/MO-1 Negative (Negative); Babesia duncani Negative (Negative); Babesia microti Negative (Negative); Ehrlichia chaffeensis Negative (Negative); Ehrlichia ewingii/canis Negative (Negative); Ehrlichia muris eauclairensis Negative (Negative)
== END 2023-11-08 09:59 | disposition home or self-care (01) ==
LOC: NCHCN 09:58
PROVIDERS: PCP Family Medicine; Visit Provider Nurse Practitioner Family
DX: M25.50 Pain in unspecified joint (principal)
CPT/HCPCS: 86617; 87798; 86618

== ENCOUNTER → 2024-01-23 01:37 | Outpatient (CLI) | payer OTHER, SELFPAY ==
--- NOTE | 2024-01-23 08:45 | DI.MAMMO_ITS ---
Exam(s) MAMMO SCREENING EXAM: MAMMO SCREENING CLINICAL HISTORY: SCREENING, Z12.31 TECHNIQUE: Mammograms were interpreted according to the usual protocol including computer analysis w centrose CAD system, tomosynthesis and C-view imaging. COMPARISON: 2017 through 2021 FINDINGS: The breasts are composed of heterogeneously dense fibroglandular densities, Breast Density category C . No suspicious masses or suspicious microcalcifications are seen. Benign calcifications again noted b ilaterally. No skin thickening or abnormal axillary lymph nodes are seen. There has been no significant change from prior exams. IMPRESSION: BI-RADS category 2, negative mammogram with benign findings. Yearly screening mammography is recommended. Breast Density Category C, heterogeneously Dense. The mammogram demonstrates the patient's breast tissue is dense. Dense breast tissue is very common a nd is not abnormal but dense breast tissue can make it harder to find cancer on a mammogram. Also, de nse breast tissue may increase breast cancer risk. This information about the result of the mammogram report was provided to the patient to raise their awareness. Use this report when you speak with the patient about their risks for breast cancer, which includes their family history. At that time, you may recommend additional screening tests (Ultrasound or MRI) as they might be useful based on their r isk. A negative radiographic report should not delay biopsy if a dominant or clinically suspicious mass is present. Up to ten percent of cancers are not identified on mammography. A negative report may reinforce clinical impression. Adenosis and dense breasts may obscure an underlying neoplasm. False positive reports average 6 to 10%.
== END ==
PROVIDERS: PCP Family Medicine; Visit Provider Family Medicine
DX: Z12.31 Encounter for screening mammogram for malignant neoplasm of breast (principal); R92.30 Dense breasts, unspecified
CPT/HCPCS: 77063; 77067

== ENCOUNTER 2025-02-18 01:52 | Outpatient (CLI) | payer OTHER, SELFPAY ==
--- NOTE | 2025-02-18 07:00 | DI.RAD_ITS ---
Exam(s) XR ANKLE LT COMPLETE EXAM: XR ANKLE LT COMPLETE CLINICAL HISTORY: ankle pain, left,m25,572 TECHNIQUE: 2D digital imaging was performed of the left ankle. Three images were obtained. AP, lat eral and oblique views were obtained. COMPARISON: No exams were available for comparison FINDINGS: BONES: No acute fracture is present. No bony destructive lesion is seen. There is a small enthesophyt e at the posterior calcaneus. JOINTS:The ankle mortise is normally aligned. SOFT TISSUE: Normal. IMPRESSION: Unremarkable radiographs of the left ankle. DATA REPOSITORY: RADIATION DOSE DELIVERED:
--- NOTE | 2025-02-18 07:00 | DI.US_ITS ---
Exam(s) US LOWER EXTREMITY VENOUS LT EXAM: US LOWER EXTREMITY VENOUS LT CLINICAL HISTORY: left ankle pain, left leg swelling,m25.572 TECHNIQUE: Left lower extremity venous ultrasound performed using grayscale, color-flow, and spectra l Doppler analysis. COMPARISON: No exams were available for comparison FINDINGS: The left common femoral, femoral and popliteal veins demonstrate normal compressibility, augmentation , and color Doppler. The posterior tibial and peroneal veins are patent. The saphenofemoral junction is unremarkable. There is no evidence of a Lauren cyst. The soft tissues are unremarkable. IMPRESSION: No evidence of a left lower extremity DVT. DATA REPOSITORY:
== END 2025-02-18 02:12 ==
LOC: DI 01:52
PROVIDERS: PCP Family Medicine; Visit Provider Physician Assistant
DX: M25.572 Pain in left ankle and joints of left foot (principal)
CPT/HCPCS: 73610; 93971

== ENCOUNTER 2025-07-08 20:28 | Outpatient (REF) | payer OTHER, SELFPAY | END 2025-07-08 20:29 | disposition home or self-care (01) | LOC: NCHCN 20:28 | PROVIDERS: PCP Family Medicine; Visit Provider Physician Assistant Medical | DX: R30.0 Dysuria (principal) | CPT/HCPCS: 87086 ==